=== PATIENT | female | born 1965 | race Caucasian/White ===

== ENCOUNTER → 2018-10-09 | Outpatient (REF) | payer OTHER, SELFPAY | LOC: M LAB LCGH 11:56 | PROVIDERS: ATTEND Physician Assistant | DX: Z01.419 Encounter for gynecological examination (general) (routine) without abnormal findings (principal) ==

== ENCOUNTER → 2018-12-06 | Outpatient (REF) | payer BC, OTHER, MEDICAID | LOC: M LAB REF 13:05 | PROVIDERS: ATTEND Ophthalmology | DX: D23.112 Other benign neoplasm of skin of right lower eyelid, including canthus (principal) ==

== ENCOUNTER → 2019-02-20 | Outpatient (REF) | LOC: M LAB LCGH 17:07 | PROVIDERS: ATTEND Surgery | DX: Z12.11 Encounter for screening for malignant neoplasm of colon (principal); K63.5 Polyp of colon ==

== ENCOUNTER → 2020-02-06 | Outpatient (REF) | payer BC | LOC: M LAB REF 12:44 | PROVIDERS: ATTEND Specialist | DX: H60.63 Unspecified chronic otitis externa, bilateral (principal) ==